=== PATIENT | male | born 1930 | race Caucasian/White ===

== ENCOUNTER → 2017-02-07 | Outpatient (CLI) | payer OTHER ==
[~2017-02-07] VITALS: Ht 172.7 cm; Wt 86.5 kg
[~2017-02-07] MED LIST: IOHEXOL 350 MG/ML 10 ML VIAL (for RAD DIAG) IVCONTRAST ONE
[2017-02-07 10:24] LABS: POTASSIUM 4.7 MEQ/L (3.5-5.1)
[2017-02-07 11:35] LABS: BLOOD, URINE NEG (NEG); COMMENT (UR) CULT NOT INDICATED; CULTURE IF INDICATED CULT NOT INDICATED; GLUCOSE,URINE NEG (NEG); KETONE, URINE NEG (NEG); MUCUS URINE FEW /lpf (OCC); NITRITE,URINE NEG (NEG); URINE COLOR LIGHT-YELLOW (YELLW/STRAW)
--- NOTE | 2017-02-07 14:28 | RADRPT ---
EXAM DATE/TIME: 02/07/2017 10:00 [place] COMPARISON: No previous studies available for comparison. INDICATIONS : Pre-operative evaluation for TAVR. IV CONTRAST: 90 cc Omnipaque 350 (iohexol) IV RADIATION DOSE: 59.71 CTDIvol (mGy) MEDICAL HISTORY : Cardiovascular disease. Aortic stenosis. SURGICAL HISTORY : None. ENCOUNTER: Initial ACUITY: 1 day PAIN SCALE: 0/10 LOCATION: chest TECHNIQUE: Volumetric scanning was performed using a multi-row detector CT scanner. The data was post processed with a variety of visualization algorithms including full volume maximum intensity projection, multi -planar sliding thin slab reformation, curved planar reformation, and surface rendering techniques. Using automated exposure control and adjustment of the mA and/or kV according to patient size, radiat ion dose was kept as low as reasonably achievable to obtain optimal diagnostic quality images. DIC OM format image data is available electronically for review and comparison. FINDINGS: CARDIAC: The coronary system is left dominant. Multiple calcifications are seen scattered throughout the right and left coronary vessels. A tiny pericardial effusion AORTIC ROOT/VALVE: 3 cusps are evident with significant calcifications. The aortic root measures 3.6 cm at the sinus of Valsalva. Sinotubular junction measures 2.8 cm i n diameter. Mid thoracic aorta measures 3.7 cm with no calcifications. THORACIC AORTA: Origin of the great vessels is normal. No evidence of aneurysm, mural thrombus, dissection, mural ca lcification, or stenosis. ABDOMINAL AORTA: Diffuse calcified atheromatous plaque. No evidence of aneurysm, mural thrombus, dissection, or stenos is. CELIAC ARTERY: Celiac artery is widely patent. SMA: Superior mesenteric artery is widely patent. RIGHT RENAL ARTERY: 2 renal arteries. There is a dominant renal artery and small accessory lower pole renal artery. Calci fied plaque is seen involving the main renal artery. A 50% stenosis involving the main renal artery. Small accessory lower pole branch appears patent. LEFT RENAL ARTERY: 2 renal arteries. There is a dominant main renal artery the smaller accessory renal artery. The main renal artery shows calcified plaque generating a 60% stenosis. RIGHT COMMON ILIAC: No evidence of aneurysm, mural thrombus, dissection, mural calcification, or stenosis. The common fe moral measures 9 mm. LEFT COMMON ILIAC: No evidence of aneurysm, mural thrombus, dissection, mural calcification, or stenosis. The common fe moral measures 8 mm THORAX: A 13 x 11 mm nodule seen within the superior segment right lower lobe. There is a subpleural nodule m easuring 7 mm within the right upper lobe. Smooth calcified pleural plaques are seen involving the an terior hemithoraces bilaterally. Chronic interstitial changes as well as bronchiectasis particularly involving the basilar segments. No infiltrates or effusions. ABDOMEN: There is a 3.8 x 3.3 cm solid mass involving the lateral cortex of the lower pole left kidney. Both k idneys are small with multiple areas of cortical scarring. There is suspected underlying lobula tion as well. Bilateral 2 mm nonobstructing renal calculi. A 3 cm cyst is seen involving the right lo be of the liver. Multiple colonic diverticuli without acute inflammation. A moderate amount of stool is seen throughout the colon which is normal in caliber. A right inguinal hernia containing fat. PELVIS: Prostate gland is normal in size. Multiple small calcifications seen scattered throughout the prostat e. No mass or adenopathy within the pelvis. A degenerative lumbar spine. CONCLUSION: 1. Normal caliber thoracic and abdominal aorta. 2. Tricuspid aortic valve with calcifications involve the valve leaflets. 3. 3.8 x 3.3 cm solid mass involving the left kidney worrisome for renal cell carcinoma. 4. 2 nodular densities involving the right lung. One is within the right upper lobe and one within th e right lower lobe. I have no prior exams for comparison. At this point metastatic lesions cannot be excluded. Short-term followup CT of the thorax should be considered versus PET scan. Eren Richardson Jr., MD on February 07, 2017 at 13:14 Board Certified Radiologist. This report was verified electronically.
--- NOTE | 2017-02-07 17:49 | ECHRPT ---
Indication: Nonrheumatic aortic (valve) stenosis CONCLUSIONS The left ventricular systolic function is normal with an estimated ejection fraction in the range of 55-60%. Wall thickness is measured at the upper limits of normal. Normal left ventricular size. Severe aortic valve regurgitation. Aortic valve area is 0.49 cm. Mild aortic valve regurgitation. There is trace to mild tricuspid valve regurgitation. The estimated pulmonary arterial pressure is 25.6 mmHg. Calcification of both mitral valve leaflets. Trace mitral valve regurgitation. BP: / HR: 56 Rhythm: Sinus MEASUREMENTS (Male / Female) Normal Values Technical Quality:Good 2D ECHO LV Diastolic Diameter PLAX 5.1 cm 4.2 - 5.9 / 3.9 - 5.3 cm LV Systolic Diameter PLAX 3.9 cm IVS Diastolic Thickness 1.1 cm 0.6 - 1.0 / 0.6 - 0.9 cm LVPW Diastolic Thickness 1.1 cm 0.6 - 1.0 / 0.6 - 0.9 cm LV Relative Wall Thickness 0.4 LVOT Diameter 2.0 cm Aortic Root Diameter 3.2 cm M-MODE Aortic Root Diameter MM 2.7 cm LA Systolic Diameter MM 3.9 cm LA Ao Ratio MM 1.4 AV Cusp Separation MM 1.6 cm DOPPLER AV Peak Velocity 439.0 cm/s AV Peak Gradient 77.1 mmHg AV Mean Gradient 48.0 mmHg AV Velocity Time Integral 140.0 cm AI Peak Velocity 441.0 cm/s AI Peak Gradient 77.8 mmHg AI Pressure Half Time 631.0 ms LVOT Peak Velocity 72.9 cm/s LVOT Peak Gradient 2.1 mmHg LVOT Velocity Time Integral 21.7 cm LVOT Cardiac Index 1858.1 cm/minm AV Area Cont Eq vti 0.5 cm AV Area Cont Eq pk 0.5 cm MR Peak Velocity 413.0 cm/s MR Peak Gradient 68.2 mmHg Mitral E Point Velocity 58.2 cm/s Mitral A Point Velocity 80.0 cm/s Mitral E to A Ratio 0.7 LV E' Lateral Velocity 6.0 cm/s Mitral E to LV E' Lateral Ratio 9.6 LV E' Septal Velocity 4.5 cm/s Mitral E to LV E' Septal Ratio 13.0 TR Peak Velocity 197.5 cm/s TR Peak Gradient 15.6 mmHg Right Atrial Pressure 10.0 mmHg Pulmonary Artery Systolic Pressu 25.6 mmHg Right Ventricular Systolic Press 25.6 mmHg PV Peak Velocity 128.0 cm/s PV Peak Gradient 6.6 mmHg FINDINGS LEFT VENTRICLE The left ventricular systolic function is normal with an estimated ejection fraction in the range of 55-60%. Wall thickness is measured at the upper limits of normal. Normal left ventricular size. RIGHT VENTRICLE Normal right ventricular size and systolic function. LEFT ATRIUM The left atrial size is normal. RIGHT ATRIUM The right atrial size is normal. ATRIAL SEPTUM Normal atrial septal thickness without atrial level shunting by limited color doppler interrogation. AORTA The aortic root and proximal ascending aorta are normal in size on limited imaging. MITRAL VALVE Calcification of both mitral valve leaflets. Trace mitral valve regurgitation. AORTIC VALVE Severe aortic valve regurgitation. Aortic valve area is 0.49 cm. Mild aortic valve regurgitation. Aortic valve mean gradient is 48 mmHg. TRICUSPID VALVE There is trace to mild tricuspid valve regurgitation. The estimated pulmonary arterial pressure is 25.6 mmHg. PULMONARY VALVE No pulmonary valve regurgitation or stenosis. VESSELS The inferior vena cava is normal in size. PERICARDIUM No pericardial effusion. Yosef Lira MD, FACC (Electronically Signed) Final Date:07 February 2017 17:47
--- NOTE | 2017-02-08 19:47 | MB ---
cc: HERMELINDO OLIVERA DATE OF CONSULTATION 02/08/17 1930 HISTORY OF PRESENT ILLNESS An 86-year-old male patient of ____ Clementina, Dr. Yusuf and Dr. Wu, history of aortic stenosis, coronary artery disease, hyperlipidemia, hypertension, has been evaluated for possible transcatheter aortic valve replacement. Echocardiogram on the showed aortic valve area 0.49 cm of mercury, mild aortic insufficiency, trace mild tricuspid regurgitation, pulmonary artery pressures of 25, EF of 55-60%. The patient also underwent chest CTA which showed normal caliber thoracic and abdominal aorta, tricuspid aortic valve with calcification involving the valve leaflets. There was a solid 3.8 x 3 x 3 cm solid mass involving the left kidney worrisome for renal cell carcinoma, also two nodular densities in the right lung which need to be followed up with a PET and/or followup CT of the chest. The patient underwent STS scoring with a risk of mortality 3.8 frailty 04/25. He has undergone previous heart catheterization [facility] by ____ 01/03/2017. The patient underwent successful PCI of the mid LAD. OTHER PAST MEDICAL HISTORY 1. Anxiety 2. Benign prostatic hypertrophy, 3. Cardiomyopathy, 4. Coronary artery disease. 5. Gout 6. Hiatal hernia, 7. Hyperlipidemia, 8. Hypertension, 9. Hypothyroidism. PAST SURGICAL HISTORY Cardiac cath ALLERGIES PENICILLIN MEDICATIONS Home include 1. Allopurinol 2. Xanax p.r.n. 3. Aspirin, 4. Coreg 3.125, 5. Plavix 75, 6. Colchicine 7. Finasteride 8. Prozac 9. Hydrocodone p.r.n., 10. Levothyroxine, 11. Lisinopril, 12. Protonix 13. Simvastatin 14. Flomax 15. Trazodone. FAMILY HISTORY Mother had history of CO. SOCIAL HISTORY The patient is retired, no alcohol. No tobacco. REVIEW OF SYSTEMS No recent weight loss, weight gain. HEENT: No blurred vision, hearing loss. RESPIRATORY: Some shortness of breath. Some fatigue. No chest pain. No paroxysmal nocturnal dyspnea. GASTROINTESTINAL: No diarrhea, vomiting. GENITOURINARY: No burning, frequency, urgency SURPLUS PROPERTY DISPOSAL AGENT: No history of TIA, CVA, seizure disorder. ENDOCRINE: Positive for hypothyroidism, PHYSICAL EXAMINATION VITAL SIGNS: Blood pressure 120/80, heart rate of 50. GENERAL: Patient is awake, alert in no acute distress. HEENT: Head is normocephalic, atraumatic. Pupils equal and reactive. Oral mucosa pink, moist. NECK: Supple. No JVD. CARDIAC: Heart sounds S1-S2 regular rate and rhythm. Grade 3/6 systolic flow murmur. LUNGS: Clear to auscultation. No wheezes, rales or rhonchi. ABDOMEN: Soft, nontender. No masses or organomegaly. EXTREMITIES: No cyanosis, clubbing or edema. LABORATORY DATA His most recent lab work and PFTs include FEV-1 of 1.81. Sodium 139, potassium 4.5, BUN of 29, creatinine 1.34. IMPRESSION This is an 86-year-old male with severe aortic stenosis. Valve area of 0.49. Other comorbidities include age, cardiomyopathy, STS score of 3.8, frailty score 1/4. Recommend evaluation for the transcatheter aortic valve replacement, however, the patient also needs to be followed up with the results from his CTA which showed a left kidney mass, concern for renal cell carcinoma. The patient will need to be evaluated now by Dr. Alexa Mcclain. At this time, he is more of an intermediate risk due to his frailty score of 1/4, STS data. Further plan per Dr. Mcclain. Dictated by JAYANT Rodriguez MD DOMINIQUE Chu/ /4:19 PM /8:15 AM
--- NOTE | 2017-02-08 22:03 | EKG ---
Date Performed: 02/07/2017 Time Performed: 11:01:34 PTAGE: 86 years EKG: Sinus bradycardia with sinus arrhythmia Prolonged QT interval Leftward axis Borderline ECG NO PREVIOUS TRACING DOCTOR: Benjy Canas Interpretating Date/Time 02/08/2017 21:43:54
--- NOTE | 2017-02-11 10:15 | RSPPFT ---
DATE OF PROCEDURE: 02/07/17 COMMENTS: Spirometry with FVC of 2.1, FEV1 of 1.8, FEV1/FVC ratio at 85%. IMPRESSION: 1. Decreased flow rates. 2. No gross obstruction. 3. Possible airways restriction. 4. If clinically warranted, lung volumes may be helpful.
== END ==
LOC: HRSP 08:08
PROVIDERS: ATTEND Radiology Vascular & Interventional Radiology
DX: I35.0 Nonrheumatic aortic (valve) stenosis (principal); R91.8 Other nonspecific abnormal finding of lung field
CPT/HCPCS: 74174; 80048; 81001; 86850; 86900; 86901; 87641; 93005; 93306; 94010; Q9967